=== PATIENT | female | born 1940 | race Caucasian/White ===

== ENCOUNTER 2018-04-12 21:17 | Emergency (ER) | payer MEDICARE, BC ==
[~2018-04-12] VITALS: Ht 157.5 cm; Wt 56.0 kg
[2018-04-12 22:32] LABS: BASOPHILS % 0.5 % (0.0-2.0); HEMATOCRIT. 34.5 % (36.0-48.0); HEMOGLOBIN. 11.4 g/dL (12.0-16.0); LYMPHOCYTES % 33.9 % (20.0-50.0); MEAN CORPUSCULAR HEMOGLOBIN 31.6 pg (28.0-32.0); MEAN CORPUSCULAR VOLUME 95.3 fL (81.0-99.0); MEAN PLATELET VOLUME 7.8 fl (7.4-10.4); MONOCYTES % 6.8 % (2.0-8.0); NEUTROPHILS % 57.8 % (40.0-76.0); PLATELET 237 x1000/uL (130-400); RED BLOOD CELL COUNT 3.62 mill/uL (4.2-5.4); RED CELL DISTRIBUTION WIDTH 13.9 % (11.6-14.6)
[2018-04-12 22:37] LABS: CHLORIDE 103 mEq/L (98-107)
[2018-04-12 22:47] LABS: CLARITY URINE CLEAR (CLEAR); COLOR URINE YELLOW (YELLOW); KETONES URINE NEGATIVE (NEGATIVE); LEUKOCYTE ESTERASE URINE 2+ (NEGATIVE); NITRITE URINE POSITIVE (NEGATIVE); OCCULT BLOOD URINE NEGATIVE (NEGATIVE); PH URINE 5.5 (4.5-8.0); PROTEIN URINE NEGATIVE (NEGATIVE); SPECIFIC GRAVITY URINE 1.006 (1.005-1.030); UROBILINOGEN URINE 0.2 E.U./dL (0.2-1.0)
[2018-04-12] MEDS ORDERED: CEPHALEXIN 250MG CAPSULE PO ONE (23:30)
[2018-04-12 23:56] VITALS: BP 140/77
== END 2018-04-12 23:59 | disposition home or self-care (01) ==
LOC: ER 21:17 → EDBD 21:17 → ER 23:59 → CANBEDREQ 04-13 00:25
DX: R00.2 Palpitations (principal); N39.0 Urinary tract infection, site not specified; I10 Essential (primary) hypertension; Z98.890 Other specified postprocedural states
CPT/HCPCS: 36415; 71045; 83605; 83880; 84484; 93005; 99284